=== PATIENT | male | born 1935 ===

== ENCOUNTER 2017-02-17 14:09 | Emergency (ER) | payer OTHER ==
[2017-02-17 14:21] VITALS: BP 122/86; PULSE 79; RESP 14; TEMP 97.7; O2SAT 92
--- NOTE | 2017-02-17 14:47 | EDPHY ---
H & P Time Seen by Provider: 02/17/17 14:33 HPI/ROS: HPI Fall, facial abrasions. 81-year-old male by private vehicle with his friend. This patient was taking his usual walk yesterday but decided to walk a little further. He reports that he usually sits to rest about intermediate through his walker. He reports that he felt more tired than usual, he sat down as he was sitting down he fell over on his side striking the right side of his face on the curb of the street. He presents with complaint of facial abrasions to that right side. He denies losing consciousness. He is not on anticoagulation or antiplatelet agents. He denies headache. No neck pain. No loss of sensation or weakness in his extremities. He has had no nausea or vomiting. He denies any associated sudden- onset lightheadedness or palpitations associated with this fall. He denies any other complaint. ROS: Constitutional: No fever, no chills. No weakness. Eyes: No discharge. No changes in vision. ENT: No sore throat. No nasal congestion or rhinorrhea. Respiratory: No cough. No shortness of breath. Cardiac: No chest pain, no palpitations. Gastrointestinal: No abdominal pain, no vomiting, no diarrhea. Genitourinary: No hematuria. No dysuria or increased frequency with urination. Musculoskeletal: No back pain. No neck pain. No myalgias or arthralgias. Skin: No rashes. As above. Neurological: No headache. No focal weakness or altered sensation. Past medical history: Depression, prediabetic. Social history: Here with his friend. Currently lives by himself. Nonsmoker. No alcohol. Physical Exam: General Appearance: Alert, no distress. This patient is responding to questions appropriately and in full sentences. This patient appears well- hydrated and well-nourished. Head: Normocephalic atraumatic except for a abrasion to the nasal bridge and the right forehead just above his brow ridge. He also has right-sided infraorbital ecchymosis on the right side. There is no bony step-off or deformity or crepitus noted on palpation of these areas. The nasal bridge is stable on palpation. Face: Facial bones are stable on palpation. Eyes: Pupils equal and round and reactive to light, no pallor or injection. No lid erythema or edema. ENT, Mouth: Mucous membranes moist. Dentition is intact. No malocclusion of the jaw. No tongue lacerations or abrasions. Pharynx is clear. The bilateral nasal canals are clear. No septal hematoma. External auditory canals and tympanic membranes are clear bilaterally. No hemotympanum. Respiratory: There are no retractions, lungs are clear to auscultation with good air movement bilaterally. Chest wall is stable to AP and lateral palpation. Cardiovascular: Regular rate and rhythm. No murmur. Gastrointestinal: Abdomen is soft and nontender, no masses, bowel sounds normal. Neurological: Motor sensory function is intact. Cranial nerves are normal. Cerebellar function intact. Gait is baseline. Skin: Warm and dry, no rashes. No lacerations, abrasions or contusions. Musculoskeletal: Neck is supple and nontender. The trachea is midline. No midline cervical, thoracic, lumbar or sacral tenderness on palpation. No flank tenderness on palpation. Extremities are symmetrical, full range of motion. All joints in the bilateral upper and bilateral lower extremities range without pain or impingement. No tenderness on palpation of the long bones in the bilateral upper and bilateral lower extremities. Psychiatric: No agitation. No depression. Database: EKG: Imaging: Procedures: Emergency department course: His vital signs were reviewed and are normal. I do not feel he needs imaging at this time. He feels comfortable going home with his friend. I discussed ibuprofen dosing with him. I discussed wound care for abrasions. Follow-up was reviewed with him. Return to emergency department precautions reviewed. All of his questions were answered. He was discharged in good condition. Differential Diagnosis: The differential diagnosis on this patient includes but is not limited to multiple facial abrasions, mechanical fall. Traumatic brain injury, facial fracture, septal hematoma, basilar skull fracture, traumatic spinal injury unlikely. This represents a partial list of diagnoses considered. These considerations are based on history, physical exam, past history, reassessment and diagnostic testing. Smoking Status: Never smoked Constitutional: Initial Vital Signs Temperature (C) 36.5 C 02/17/17 14:15 Heart Rate 79 02/17/17 14:15 Respiratory Rate 14 02/17/17 14:15 Blood Pressure 122/86 H 02/17/17 14:15 O2 Sat (%) 92 02/17/17 14:15 O2 Delivery Mode Room Air Allergies/Adverse Reactions: No Known Allergies Allergy (Unverified 02/17/17 14:21) Home Medications: Medication Instructions Recorded Lorazepam 02/17/17 Metformin HCl 02/17/17 Olanzapine 02/17/17 Paxil 02/17/17 Departure - Departure Disposition: Home, Routine, Self-Care Clinical Impression: Mechanical fall, Facial abrasion, Facial contusion Condition: Good Instructions: Abrasion (ED), Head Injury (ED) Additional Instructions: Read and follow provided instructions. Follow-up with your primary care physician, Dr. Isbell, in 1-2 days for re- evaluation. Ibuprofen dosin mg every 6 hours with meals for the next 3 days only. Take only as needed for pain. Return to the emergency department for worsening headache, vomiting, weakness or other serious concerns. Avoid strenuous activity until after you have been seen on follow-up by her primary care physician Dr. Isbell. Referrals: TATY ISBELL [Primary Care Provider] - As per Instructions
== END 2017-02-17 15:06 | disposition home or self-care (01) ==
LOC: CED 14:09
DX: S00.81XA Abrasion of other part of head, initial encounter (principal); S00.83XA Contusion of other part of head, initial encounter; W01.198A Fall on same level from slipping, tripping and stumbling with subsequent striking against other object, initial encounter